=== PATIENT | male | born 1970 | race Two or more races ===

== ENCOUNTER → 2024-04-27 | Outpatient (CLI) | payer MEDICARE, MEDICAID, SELFPAY | END | disposition home or self-care (01) | PROVIDERS: PCP Nurse Practitioner Family; Referring Provider Nurse Practitioner Family; Visit Provider Student in an Organized Health Care Education/Training Program | DX: L89.223 Pressure ulcer of left hip, stage 3 (principal); G82.20 Paraplegia, unspecified; I10 Essential (primary) hypertension | CPT/HCPCS: 11042; 73502; 99212; A9270; G0463 ==

== ENCOUNTER → 2024-04-27 | Outpatient (CLI) | payer MEDICARE, MEDICAID, SELFPAY ==
--- NOTE | 2024-04-27 15:08 | XR_ITS ---
Examination:Left hip AP, lateral, AP pelvis 3 views Technique: Hip AP lateral, AP pelvis, 3 views Exam date and time:April 27, 2024 at 1519 hours INDICATIONS: Nonhealing ulcer left hip months. FINDINGS: Severe osteopenia No davy cortical bone destruction Moderate to advanced bilateral hip osteoarthritis IMPRESSION: No davy cortical bone destruction Consider CT scan pelvis without contrast follow-up, as clinically warranted.
== END | disposition home or self-care (01) ==
PROVIDERS: PCP Nurse Practitioner Family; Referring Provider Nurse Practitioner Family; Visit Provider Nurse Practitioner Family
DX: L89.224 Pressure ulcer of left hip, stage 4 (principal)
CPT/HCPCS: 73502

== ENCOUNTER → 2024-05-04 | Outpatient (CLI) | payer MEDICARE, MEDICAID, SELFPAY | END | disposition home or self-care (01) | LOC: SWHD 12:59 | PROVIDERS: PCP Nurse Practitioner Family; Referring Provider Nurse Practitioner Family; Visit Provider Surgery | DX: L89.224 Pressure ulcer of left hip, stage 4 (principal); G82.20 Paraplegia, unspecified; I10 Essential (primary) hypertension | CPT/HCPCS: 11042; A9270 ==

== ENCOUNTER → 2024-05-13 | Outpatient (CLI) | payer MEDICARE, MEDICAID, SELFPAY | END | disposition home or self-care (01) | LOC: SWHD 14:57 | PROVIDERS: PCP Nurse Practitioner Family; Referring Provider Nurse Practitioner Family; Visit Provider Student in an Organized Health Care Education/Training Program | DX: L89.224 Pressure ulcer of left hip, stage 4 (principal); G82.20 Paraplegia, unspecified; I10 Essential (primary) hypertension | CPT/HCPCS: 11044 ==

== ENCOUNTER → 2024-05-20 | Outpatient (CLI) | payer MEDICARE, MEDICAID, SELFPAY | END | disposition home or self-care (01) | LOC: SWHD 14:13 | PROVIDERS: PCP Nurse Practitioner Family; Referring Provider Nurse Practitioner Family; Visit Provider Student in an Organized Health Care Education/Training Program | DX: L89.224 Pressure ulcer of left hip, stage 4 (principal); G82.20 Paraplegia, unspecified; I10 Essential (primary) hypertension | CPT/HCPCS: 11044; A9270 ==

== ENCOUNTER → 2024-06-03 | Outpatient (CLI) | payer MEDICARE, MEDICAID, SELFPAY | END | disposition home or self-care (01) | LOC: SWHD 13:46 | PROVIDERS: PCP Nurse Practitioner Family; Referring Provider Nurse Practitioner Family; Visit Provider Student in an Organized Health Care Education/Training Program | DX: L89.224 Pressure ulcer of left hip, stage 4 (principal); G82.20 Paraplegia, unspecified; I10 Essential (primary) hypertension | CPT/HCPCS: 11042; A9270 ==

== ENCOUNTER → 2024-06-24 | Outpatient (CLI) | payer MEDICARE, MEDICAID, SELFPAY | END | disposition home or self-care (01) | LOC: SWHD 13:32 | PROVIDERS: PCP Nurse Practitioner Family; Referring Provider Nurse Practitioner Family; Visit Provider Student in an Organized Health Care Education/Training Program | DX: L89.224 Pressure ulcer of left hip, stage 4 (principal); G82.20 Paraplegia, unspecified; I10 Essential (primary) hypertension | CPT/HCPCS: 11044 ==

== ENCOUNTER → 2024-08-05 | Outpatient (CLI) | payer MEDICARE, MEDICAID, SELFPAY | END | disposition home or self-care (01) | LOC: SWHD 13:25 | PROVIDERS: PCP Nurse Practitioner Family; Referring Provider Nurse Practitioner Family; Visit Provider Student in an Organized Health Care Education/Training Program | DX: L89.224 Pressure ulcer of left hip, stage 4 (principal); G82.20 Paraplegia, unspecified; I10 Essential (primary) hypertension | CPT/HCPCS: 11042 ==

== ENCOUNTER → 2024-08-19 | Outpatient (CLI) | payer MEDICARE, MEDICAID, SELFPAY | END | disposition home or self-care (01) | LOC: SWHD 13:10 | PROVIDERS: PCP Nurse Practitioner Family; Referring Provider Nurse Practitioner Family; Visit Provider Student in an Organized Health Care Education/Training Program | DX: I87.331 Chronic venous hypertension (idiopathic) with ulcer and inflammation of right lower extremity (principal); L89.224 Pressure ulcer of left hip, stage 4; L03.115 Cellulitis of right lower limb; F12.929 Cannabis use, unspecified with intoxication, unspecified | CPT/HCPCS: 11042; A9270 ==

== ENCOUNTER → 2024-09-09 | Outpatient (CLI) | payer MEDICARE, MEDICAID, SELFPAY | END | disposition home or self-care (01) | LOC: SWHD 14:19 | PROVIDERS: PCP Nurse Practitioner Family; Referring Provider Nurse Practitioner Family; Visit Provider Student in an Organized Health Care Education/Training Program | DX: I87.331 Chronic venous hypertension (idiopathic) with ulcer and inflammation of right lower extremity (principal); L89.224 Pressure ulcer of left hip, stage 4; L03.115 Cellulitis of right lower limb; F12.929 Cannabis use, unspecified with intoxication, unspecified | CPT/HCPCS: 11042 ==

== ENCOUNTER → 2024-09-17 | Outpatient (CLI) | payer MEDICARE, MEDICAID, SELFPAY | END | disposition home or self-care (01) | LOC: SWHD 13:28 | PROVIDERS: PCP Nurse Practitioner Family; Referring Provider Nurse Practitioner Family; Visit Provider Surgery | DX: I87.331 Chronic venous hypertension (idiopathic) with ulcer and inflammation of right lower extremity (principal); L89.224 Pressure ulcer of left hip, stage 4; L03.115 Cellulitis of right lower limb; F12.929 Cannabis use, unspecified with intoxication, unspecified | CPT/HCPCS: 11042; A9270 ==

== ENCOUNTER → 2024-09-24 | Outpatient (CLI) | payer MEDICARE, MEDICAID, SELFPAY | END | disposition home or self-care (01) | LOC: SWHD 13:29 | PROVIDERS: PCP Nurse Practitioner Family; Referring Provider Nurse Practitioner Family; Visit Provider Surgery | DX: I87.331 Chronic venous hypertension (idiopathic) with ulcer and inflammation of right lower extremity (principal); L89.224 Pressure ulcer of left hip, stage 4; L03.115 Cellulitis of right lower limb; F12.929 Cannabis use, unspecified with intoxication, unspecified | CPT/HCPCS: 11042; A9270 ==

== ENCOUNTER → 2024-10-01 | Outpatient (CLI) | payer MEDICARE, MEDICAID, SELFPAY | END | disposition home or self-care (01) | LOC: SWHD 13:29 | PROVIDERS: PCP Nurse Practitioner Family; Referring Provider Nurse Practitioner Family; Visit Provider Student in an Organized Health Care Education/Training Program | DX: I87.331 Chronic venous hypertension (idiopathic) with ulcer and inflammation of right lower extremity (principal); L89.224 Pressure ulcer of left hip, stage 4; L03.115 Cellulitis of right lower limb; F12.929 Cannabis use, unspecified with intoxication, unspecified | CPT/HCPCS: 97597; A9270 ==

== ENCOUNTER → 2024-10-08 | Outpatient (CLI) | payer MEDICARE, MEDICAID, SELFPAY | END | disposition home or self-care (01) | LOC: SWHD 15:42 | PROVIDERS: PCP Nurse Practitioner Family; Referring Provider Nurse Practitioner Family; Visit Provider Physician Assistant | DX: I87.331 Chronic venous hypertension (idiopathic) with ulcer and inflammation of right lower extremity (principal); L89.224 Pressure ulcer of left hip, stage 4; L03.115 Cellulitis of right lower limb; F12.929 Cannabis use, unspecified with intoxication, unspecified | CPT/HCPCS: 17250 ==

== ENCOUNTER → 2024-10-22 | Outpatient (CLI) | payer MEDICARE, MEDICAID, SELFPAY | END | disposition home or self-care (01) | LOC: SWHD 13:25 | PROVIDERS: PCP Nurse Practitioner Family; Referring Provider Nurse Practitioner Family; Visit Provider Surgery | DX: I87.331 Chronic venous hypertension (idiopathic) with ulcer and inflammation of right lower extremity (principal) | CPT/HCPCS: 11042; A9270 ==

== ENCOUNTER → 2024-11-19 | Outpatient (CLI) | payer MEDICARE, MEDICAID, SELFPAY | END | disposition home or self-care (01) | LOC: SWHD 13:25 | PROVIDERS: PCP Nurse Practitioner Family; Referring Provider Nurse Practitioner Family; Visit Provider Physician Assistant | DX: I87.331 Chronic venous hypertension (idiopathic) with ulcer and inflammation of right lower extremity (principal); L89.224 Pressure ulcer of left hip, stage 4; L03.115 Cellulitis of right lower limb; F12.929 Cannabis use, unspecified with intoxication, unspecified | CPT/HCPCS: 99213; G0463 ==